=== PATIENT | female | born 1950 | race African-American/Black ===

== ENCOUNTER 2017-03-20 07:06 | Emergency (ER) | payer OTHER ==
[2017-03-20 07:21] VITALS: BMI 30.2
--- NOTE | 2017-03-20 07:27 | PDOC ---
History of Present Illness - General Chief Complaint: Sore Throat Stated Complaint: COLD SYMPTOMS Time Seen by Provider: 03/20/17 07:21 History Source: Patient Exam Limitations: No Limitations - History of Present Illness Initial Comments: 03/20/17 07:27 This is a 66 yo F with PMH of HTN, who presents due to sore throat. Sore throat and difficulty swallowing because of pain started on Saturday, followed by dry cough and occasional chills. She also notes orhtopnea since Saturday, having to sleep in a chair. She has no sick contacts but on Sat she attended a fair where she was in proximity with many small children She denies fever, rhinorrhea, chest pain, palpitations, productive cough, h/a, n/v, diarrhea, constipation, and pain, dysuria, LE edema. PCP Dr Parekh 03/20/17 07:40 Past History - Past Medical History Allergies/Adverse Reactions: Allergies Allergy/AdvReac Type Severity Reaction Status Date / Time No Known Allergies Allergy Verified 03/20/17 07:16 Home Medications: Ambulatory Orders Amlodipine Besylate 5 mg PO DAILY 03/20/16 HTN: Yes - Immunization History Immunization Up to Date: Yes - Psycho/Social/Smoking Cessation Hx Anxiety: No Suicidal Ideation: No Smoking History: Never smoked Hx Alcohol Use: No Drug/Substance Use Hx: No Substance Use Type: None Review of Systems - Review of Systems Able to Perform ROS?: Yes Is the patient limited Cambodian proficient: No Constitutional: Yes: Chills. No: Fever, Weakness HEENTM: Yes: Throat Pain, Difficulty Swallowing. No: Nose Congestion, Throat Swelling Respiratory: Yes: Cough, Orthopnea. No: Shortness of Breath, Wheezing, Productive cough, Hemoptysis Cardiac (ROS): No: Chest Pain, Edema, Irregular Heart Rate, Lightheadedness, Palpitations, Syncope ABD/GI: No: Abdominal Distended, Constipated, Diarrhea, Nausea, Rectal Bleeding , Vomiting, Abdominal cramping, Tarry Stools : No: Dysuria, Flank Pain Musculoskeletal: No: Back Pain, Joint Pain Integumentary: No: Bruising, Pruritus, Rash Neurological: No: Headache, Numbness, Paresthesia Endocrine: No: Change in Weight Hematologic/Lymphatic: No: Anemia, Blood Clots, Swollen Glands All Other Systems: Reviewed and Negative *Physical Exam - Vital Signs Last Vital Signs Temp Pulse Resp BP Pulse Ox 97 H 20 140/87 99 03/20/17 07:13 03/20/17 07:13 03/20/17 07:13 03/20/17 07:13 - Physical Exam Comments: 03/20/17 07:41 General: aa0 x 3 NAD HEENT: PERRLA, EOMI, sclera anicteric, conjunctiva clear, throat erythematous w/ o exudate, no edema, no cervical or supraclavicular adenopathy, tympanic membranes clear, nares clear w/o discharge. CV: RRR S1S2 no murmur or rub Pulm: cta b/l GI: soft, nontender, nondistended, normoactive bowel sounds, Musculoskeletal: no peripheral edema Neuro: CN II-XII grossly intact. 03/20/17 07:50 Heart Score/ECG Review #1 ECG reviewed & interpreted by me at: 08:00 (ns 79, l axis, possible old septal infarct, minimal criteria for lvh hypertrophy) Medical Decision Making - Medical Decision Making 03/20/17 08:18 patient presents with clinical picture most consistent with viral and bacterial pharyngitis, very low suspicion for cardiac causes Rapid strep: negative EKG: unremarkable for ACS CXR: unremarkable Patient likely has viral pharyngitis and was advised to focus on symptomatic relief with rest, warm tea with homey and cepacol sore throat drops. She does not require antibiotics. Will give a motrin before d/c 03/20/17 09:21 03/20/17 09:23 *DC/Admit/Observation/Transfer Diagnosis at time of Disposition: Viral pharyngitis - Discharge Dispostion Disposition: HOME Condition at time of disposition: Good Admit: No - Patient Instructions Printed Discharge Instructions: DI for Viral Pharyngitis Additional Instructions: You have viral pharyngitis. It will resolve on its own and treatment should be focused on symptomatic relief with rest, warm tea with homey and cepacol sore throat drops (sold over the counter in cold relief section of pharmacy). You do not require antibiotics. Follow up with your primary doctor in a week. Return to ED if you develop chest pain or severe cough with green or yellow sputum.
--- NOTE | 2017-03-20 07:53 | PDOC ---
Attending Attestation - Resident Resident Name: CarolinaMagalie - ED Attending Attestation I have performed the following: I have examined & evaluated the patient, The case was reviewed & discussed with the resident, I agree w/resident's findings & plan - HPI HPI: 03/20/17 07:52 66y F hx of well contolled htn presents with sore throat for the past 3 days associated with nonproductive coughing when she lies down without associated fever/chills. on exam pt is well appearing, in no distress, exam unremarkble, throat noted for mild erythema w/o edema, exudates, assymetry. voice is normal and no stridor present. lungs clear pts throat swab neg for strep and cxr clear. will dc with pmd fu and supportive care I discussed the physical exam findings, ancillary test results and final diagnoses with the patient. I answered all of the patient's questions. The patient was satisfied with the care received and felt comfortable with the discharge plan and treatment plan. The patient will call their primary care physician within 24 hours to arrange follow-up and will return to the Emergency Department with any new, persistent or worsening symptoms. - Physicial Exam PE: 03/21/17 09:10 see above - Medical Decision Making 03/21/17 09:10 see above Heart Score/ECG Review - ECG Impressions Comment:: 03/20/17 09:43 Twelve-lead EKG was performed and reviewed by me. There is normal sinus rhythm with a rate of [address] changes noted for acute ischemia
[2017-03-20] MEDS ORDERED: BENZOCAINE/MENTH/CETYLPYRD CL 1 EACH LOZENGE MM PRN (09:16)
[2017-03-20] MEDS ORDERED: IBUPROFEN 600 MG TABLET (FP) PO ONE ×2 (09:24→09:38)
[2017-03-20 10:13] VITALS: BP 139/91; PULSE 84; TEMP 97.9
--- NOTE | 2017-03-21 11:16 | EKG ---
Test Reason : Blood Pressure : / mmHG Vent. Rate : 079 BPM Atrial Rate : 079 BPM P-R Int : 154 ms QRS Dur : 074 ms QT Int : 408 ms P-R-T Axes : 030 -25 -04 degrees QTc Int : 467 ms NORMAL SINUS RHYTHM MODERATE VOLTAGE CRITERIA FOR LVH, MAY BE NORMAL VARIANT ANTEROSEPTAL INFARCT , AGE UNDETERMINED ABNORMAL ECG WHEN COMPARED WITH ECG OF 20-MAR-2016 11:17, VENT. RATE HAS INCREASED BY 27 BPM ANTEROSEPTAL INFARCT IS NOW PRESENT QT HAS LENGTHENED Confirmed by CHIOV FINK MD ([id number]) on 03/21/2017 11:15:45 AM Referred By: Confirmed By:CHIVO FINK MD
== END 2017-03-20 09:57 | disposition home or self-care (01) ==
LOC: JER 07:06
DX: J02.9 Acute pharyngitis, unspecified (principal); B78.9 Strongyloidiasis, unspecified; I10 Essential (primary) hypertension
CPT/HCPCS: 71020-TC; 87070; 87430; 93005; 93010; 99282-25

== ENCOUNTER 2018-04-06 10:12 | Emergency (ER) | payer OTHER ==
[2018-04-06 10:22] VITALS: BP 147/95; PULSE 76; TEMP 97.6; BMI 30.2
[2018-04-06] MEDS ORDERED: DEXAMETHASONE SOD PHOSPHATE 10 MG/1 ML VIAL IM ONE (10:41)
[2018-04-06] MEDS ORDERED: DEXAMETHASONE SOD PHOSPHATE 10 MG/1 ML VIAL ONE (10:43)
--- NOTE | 2018-04-06 10:48 | PDOC ---
History of Present Illness - General Chief Complaint: Rash Stated Complaint: RASH Time Seen by Provider: 04/06/18 10:38 History Source: Patient Exam Limitations: Clinical Condition - History of Present Illness Initial Comments: 04/06/18 10:42 Patient present with complains of diffused hives to b/l forearms and upper back since this AM of unknown etiology which is very itchy. report she had similar episode in the past which allergies told her was due to shell fish allergies but she hasn't had any shellfish. Denies chocking sensation, SOB, swelling of tongue, dizziness Timing/Duration: 24 hours Severity: moderate Modifying Factors: worse with: other (scratching ) Associated Symptoms: reports: rash. denies: fever/chills, shortness of breath Past History - Past Medical History Allergies/Adverse Reactions: Allergies Allergy/AdvReac Type Severity Reaction Status Date / Time No Known Allergies Allergy Verified 04/06/18 10:20 Home Medications: Ambulatory Orders Amlodipine Besylate 5 mg PO DAILY 03/20/16 Hydrocortisone 2.5% Topical Cr [Anusol-Hc -] 1 applic RC BID PRN #1 tube Hydroxyzine HCl 25 mg PO TID PRN #12 tablet 04/06/18 Prednisone [Deltasone] 20 mg PO BID 5 Days #10 tablet 04/06/18 HTN: Yes - Immunization History Immunization Up to Date: Yes - Suicide/Smoking/Psychosocial Hx Smoking History: Never smoked Have you smoked in the past 12 months: No Information on smoking cessation initiated: No Hx Alcohol Use: No Drug/Substance Use Hx: No Substance Use Type: None Review of Systems - Review of Systems Able to Perform ROS?: Yes Is the patient limited Slovak proficient: No Constitutional: No: Chills, Diaphoresis, Fever, Loss of Appetite, Malaise, Night Sweats, Weakness, Weight Stable, Unintentional Wgt. Loss, Unexplained wgt Loss, Other HEENTM: No: Eye Pain, Blurred Vision, Tearing, Recent change in vision, Double Vision, Cataracts, Ear Pain, Ocular Prothesis, Ear Discharge, Nose Pain, Nose Congestion, Tinnitus, Nose Bleeding, Hearing Loss, Throat Pain, Throat Swelling , Mouth Pain, Dental Problems, Difficulty Swallowing, Mouth Swelling, Other Respiratory: No: Cough, Orthopnea, Shortness of Breath, SOB with Exertion, SOB at Rest, Stridor, Wheezing, Productive cough, Hemoptysis, Other Cardiac (ROS): No: Chest Pain, Edema, Irregular Heart Rate, Lightheadedness, Palpitations, Syncope, Chest Tightness, Other ABD/GI: No: Abdominal Distended, Abd. Pain w/ defecation, Blood Streaked Bowels , Constipated, Diarrhea, Difficulty Swallowing, Nausea, Poor Appetite, Poor Fluid Intake, Rectal Bleeding, Vomiting, Indigestion, Abdominal cramping, Tarry Stools, Other Musculoskeletal: No: Back Pain, Gout, Joint Pain, Joint Swelling, Muscle Pain, Muscle Weakness, Neck Pain, Joint Stiffness, Other Integumentary: Yes: Pruritus (b/l forearms and lower back), Rash. No: Bruising Neurological: No: Headache, Numbness, Paresthesia, Pre-Existing Deficit, Seizure , Tingling, Tremors, Weakness, Unsteady Gait, Ataxia, Dizziness, Other Psychiatric: No: Anxiety, Depression, Frequent Crying, Stressors, Sleep Pattern Change, Emotional Problems, Mood Swings, Change in Appetite, Other Endocrine: No: Excessive Sweating, Flushing, Intolerance to Cold, Intolerance to Heat, Increased Hunger, Increased Thirst, Increased Urine, Unexplained Weight Gain, Unexplained Weight Loss, Change in Weight, Other Hematologic/Lymphatic: No: Easy Bruising All Other Systems: Reviewed and Negative *Physical Exam - Vital Signs Last Vital Signs Temp Pulse Resp BP Pulse Ox 97.6 F 76 18 147/95 100 04/06/18 10:18 04/06/18 10:18 04/06/18 10:18 04/06/18 10:18 04/06/18 10:18 - Physical Exam General Appearance: Yes: Nourished, Appropriately Dressed. No: Apparent Distress HEENT: positive: Normal ENT Inspection, Normal Voice, TMs Normal, Pharynx Normal Neck: positive: Trachea midline, Supple Respiratory/Chest: positive: Lungs Clear, Normal Breath Sounds. negative: Respiratory Distress, Accessory Muscle Use Cardiovascular: positive: Regular Rhythm, Regular Rate, S1, S2 Gastrointestinal/Abdominal: positive: Normal Bowel Sounds Musculoskeletal: positive: Other (diffused urticarial rash to plantar aspect of b/l forearms and lower back) Extremity: positive: Normal Capillary Refill, Other (urticarial rash to b/l forearms w/o excorations ) Integumentary: positive: Rash (diffused moderate urticarial rash to plantar aspect of b/l forearms and lower back w/o exorations ) Neurologic: positive: Fully Oriented, Alert, Normal Mood/Affect, Normal Response Medical Decision Making - Medical Decision Making 04/06/18 10:48 Patient presenting with urticaria rash and pruritus. likely contact dermatitis. Decadron 10mg IM given. stable for home d/c with outpt tx and dermatology follow -up *DC/Admit/Observation/Transfer Diagnosis at time of Disposition: Urticaria Contact dermatitis Qualifiers: Contact dermatitis type: allergic Contact dermatitis trigger: unspecified trigger Qualified Code(s): L23.9 - Allergic contact dermatitis, unspecified cause - Discharge Dispostion Disposition: HOME Condition at time of disposition: Good Decision to Admit order: No - Prescriptions Prescriptions: Hydrocortisone 2.5% Topical Cr [Anusol-Hc -] 1 applic RC BID PRN #1 tube PRN Reason: rash Hydroxyzine HCl 25 mg PO TID PRN #12 tablet PRN Reason: itching and hives Prednisone [Deltasone] 20 mg PO BID 5 Days #10 tablet - Referrals - Patient Instructions Printed Discharge Instructions: DI for Contact Dermatitis Additional Instructions: take medication as prescribed. follow-up with dermatology if symptoms persists - Post Discharge Activity
== END 2018-04-06 10:58 | disposition home or self-care (01) ==
LOC: JERFT 10:12
PROC: 3E0233Z Introduction of Anti-inflammatory into Muscle, Percutaneous Approach (ICD-10-PCS; principal; 2018-04-06)
DX: L50.0 Allergic urticaria (principal); L23.9 Allergic contact dermatitis, unspecified cause; I10 Essential (primary) hypertension
CPT/HCPCS: 99281-25; J1100

== ENCOUNTER 2018-06-14 10:13 | Emergency (ER) | payer OTHER ==
[2018-06-14 10:49] VITALS: BP 169/82; PULSE 60; TEMP 98; BMI 31.1
--- NOTE | 2018-06-14 11:22 | PDOC ---
History of Present Illness - General Chief Complaint: Rash Stated Complaint: RASH Time Seen by Provider: 06/14/18 11:13 Past History - Past Medical History Allergies/Adverse Reactions: Allergies Allergy/AdvReac Type Severity Reaction Status Date / Time No Known Allergies Allergy Verified 06/14/18 10:46 Home Medications: Ambulatory Orders Amlodipine Besylate 5 mg PO DAILY 03/20/16 Hydrocortisone 2.5% Topical Cr [Anusol-Hc -] 1 applic RC BID PRN #1 tube Hydroxyzine HCl 25 mg PO TID PRN #12 tablet 04/06/18 Prednisone [Deltasone] 20 mg PO BID 5 Days #10 tablet 04/06/18 Triamcinolone 0.025% Ointment [Aristocort 0.025% Ointment -] 1 applic TP DAILY 7 Days #30 g 06/14/18 hydrOXYzine HCL [Atarax -] 25 mg PO TID #14 tablet 06/14/18 COPD: No HTN: Yes - Immunization History Immunization Up to Date: Yes - Suicide/Smoking/Psychosocial Hx Smoking History: Never smoked Have you smoked in the past 12 months: No Hx Alcohol Use: No Drug/Substance Use Hx: No Substance Use Type: None *Physical Exam - Vital Signs Last Vital Signs Temp Pulse Resp BP Pulse Ox 98 F 60 16 169/82 99 06/14/18 10:46 06/14/18 10:46 06/14/18 10:46 06/14/18 10:46 06/14/18 10:46 - Physical Exam General Appearance: No: Nourished Respiratory/Chest: positive: Lungs Clear, Normal Breath Sounds Cardiovascular: positive: Regular Rhythm, Regular Rate, S1, S2 Integumentary: positive: Erythema, Other (macular rash noted in b/l arms). negative: Hives Neurologic: positive: linen attendant II-XII NML intact, Fully Oriented Medical Decision Making - Medical Decision Making 06/14/18 11:16 patient is a 68years old female with multiple visits for bilateral upper extremity rash. She was once given referral to dermatology patient has never follow up. She presents today with a rash and bilateral in bilateral upper a left greater than right since she woke up this morning with rash to arm she denies any new soaps no shortness of breath chest pain and is no sick contact. 06/14/18 17:42 *DC/Admit/Observation/Transfer Diagnosis at time of Disposition: Contact dermatitis Qualifiers: Contact dermatitis type: allergic Contact dermatitis trigger: unspecified trigger Qualified Code(s): L23.9 - Allergic contact dermatitis, unspecified cause - Discharge Dispostion Disposition: HOME Condition at time of disposition: Stable Decision to Admit order: No - Prescriptions Prescriptions: hydrOXYzine HCL [Atarax -] 25 mg PO TID #14 tablet Triamcinolone 0.025% Ointment [Aristocort 0.025% Ointment -] 1 applic TP DAILY 7 Days #30 g - Referrals Referrals: Tom Beltrán MD [Primary Care Provider] - [place] Huddleston MD [Staff Physician] - 2 Days - Patient Instructions Printed Discharge Instructions: Contact Dermatitis Additional Instructions: I discussed the physical exam findings, ancillary test results and final diagnoses with the patient. I answered all of the patient's questions. The patient was satisfied with the care received and felt comfortable with the discharge plan and treatment plan. The patient will call their primary care physician within 24 hours to arrange follow-up and will return to the Emergency Department with any new, persistant or worsening symptoms. - Post Discharge Activity
== END 2018-06-14 11:27 | disposition home or self-care (01) ==
LOC: JERFT 10:13
DX: L23.9 Allergic contact dermatitis, unspecified cause (principal); I10 Essential (primary) hypertension
CPT/HCPCS: 99281-25